=== PATIENT | female | born 1945 | race Caucasian/White ===

== ENCOUNTER 2024-09-28 13:28 | Outpatient (RCR) | payer MEDICARE, OTHER, SELFPAY ==
--- NOTE | 2024-09-28 18:06 | OPREHPOC ---
Outpatient Therapy Plan of Care This is a Multidisciplinary Plan of Care that may contain components documented by all disciplines (PT, OT, and ST.) PT Problem 1 PT Problem #1 Knowledge Deficit PT Goal 1 Goal / Goal Update Independent and compliant with HEP. Target Visit 4 PT Problem 2 PT Problem #2 Pain PT Goal 1 Goal / Goal Update Pt to report no more than 5/10 pain at rest. Pt to report no more than 7/10 pain with activity. Target Visit 12 PT Problem 3 PT Problem #3 Impaired Strength PT Goal 1 Goal / Goal Update Pt to improve bilat shoulder strength to 4/5. Target Visit 12 PT Problem 4 PT Problem #4 Impaired Range of Motion PT Goal 1 Goal / Goal Update Pt to achieve full passive ROM. Pt to improve R active shoulder flexion ROM to 150 deg. Pt to improve R active shoulder abduction ROM to 150 deg. Pt to improve R active shoulder ER ROM to occiput. Pt to improve R active shoulder IR to T8. Target Visit 12 PT Problem 5 PT Problem #5 Impaired Functional Mobility PT Goal 1 Goal / Goal Update Pt to report 20% improvement on Quick Dash. Pt to report being able to reach up to brush or wash her hair with her R hand. Target Visit 12
--- NOTE | 2024-09-28 18:06 | PTOPEVAL1 ---
Assessment and note entered by Pearl Cabrera, PT Evaluation Information Assessment Status Evaluation Diagnosis Closed R humeral neck fracture ICD-10 Condition Codes (PT) Pain in right shoulder M25.511,Weakness R53.1 Other ICD-10 Condition Codes ( S42.211A PT) Onset 06/30/24 Subjective Information Pt reports around 3 months ago she was going to work at [employer], pulled over to ask for directions after missing her exit and when she did , she fell and landed on her shoulder. She was taken to [facility] and then [facility] inpatient rehab for 2 weeks. She uses a heating pad at home as needed with good benefit. She is currently not working but plans to go back to work in November. She denies numbness down the arm and pain is localized to the shoulder. X-rays are not obtained from [facility] but according to order pt experienced a closed R humeral neck fracture. However pt reports her shoulder only came out of place during the fall. Reported Pain Level Pain Score 9: Self Report Assessment PT Clinical Summary Mrs. Graham is a 78 yo female who enters the clinic following closed R humeral neck fracture after a fall 3 months ago. She demonstrates significant ROM and strength deficits that impair her ability to perform daily functional tasks such as brushing and washing her hair, reaching and lifting items, getting dressed, and doing laundry and dishes. She will benefit from skilled PT intervention to improve on these deficits to be able to perform functional tasks with less pain. Plan of Care Interventions Electrical Stimulation,Hot Pack/Cold Pack,Manual Therapy,Neuro Re-education,Patient/Caregiver Education,Therapeutic Activities,Therapeutic Exercise,Self-Care/Home Management PT Services Indicated Yes Treatment Frequency and 3x/week for 12 visits Duration These treatments will address the objective and functional deficits as defined above. The patient will be advanced safely and appropriately in order for the patient to progress towards his/her prior level of function. Additional exercises will be introduced and as well as a comprehensive home exercise program upon discharge, if needed, ?to ensure carryover of functional gains achieved in the clinic. This treatment plan has been reviewed and agreement upon by the patient.
== END 2024-12-27 23:59 | disposition home or self-care (01) ==
LOC: CHSPT 13:28
DX: S42.211A Unspecified displaced fracture of surgical neck of right humerus, initial encounter for closed fracture (principal)
CPT/HCPCS: 97014; 97110; 97161; G0283